=== PATIENT | female | born 1975 | race Caucasian/White ===

== ENCOUNTER → 2020-06-28 | Outpatient (CLI) | payer BC ==
[2020-06-28 13:44] LABS: BILIRUBIN,URINE NEG (NEG); CLARITY,URINE HAZY; COLOR,URINE YELLOW; GLUCOSE,URINE NEG (NEG); NITRITE,URINE NEG (NEG); UROBILINOGEN,URINE 0.2 mg/dL (0.2 mg/dL); WBC,URINE OCC /HPF (0-4)
[2020-06-28 13:45] LABS: BACTERIA,URINE 0 /HPF (0-FEW); SQUAMOUS EPITHELIAL CELL,UR OCC /LPF
== END ==
LOC: LAB 11:54
PROVIDERS: ATTEND Family Medicine
DX: R82.90 Unspecified abnormal findings in urine (principal)
CPT/HCPCS: 81001

== ENCOUNTER → 2020-10-22 | Outpatient (CLI) | payer BC ==
--- NOTE | 2020-10-22 17:16 | RAD ---
EXAM: Left finger, 3 views. HISTORY: Trauma. Pain. COMPARISON: None. FINDINGS: 3 views of the left small there are obtained. There is no acute fracture, dislocation or eason bluxation. There is no foreign body. IMPRESSION: No acute osseous finding. Electronically signed by: Fatou Romero MD (10/22/2020 5:14 PM) [id number]
== END ==
LOC: DXRAD 12:51
PROVIDERS: ATTEND Physician Assistant Medical
DX: M79.645 Pain in left finger(s) (principal)
CPT/HCPCS: 73140

== ENCOUNTER → 2021-04-01 | Outpatient (CLI) | payer OTHER ==
--- NOTE | 2021-04-01 11:15 | RAD ---
XR SHOULDER_LEFT 2+ VIEWS Clinical indications: Reason: LIFTING OBJECT, PAIN AND BURNING IN SHOULDER Findings: No acute fracture or dislocation or osteolytic process is evident. No AC joint separation is seen. IMPRESSION: No acute osseous abnormality is evident. Electronically signed by: Nathan Nelson MD (04/01/2021 11:12 AM) [id number]
== END ==
LOC: RAD 10:41
PROVIDERS: ATTEND Nurse Practitioner Family
DX: S49.92XA Unspecified injury of left shoulder and upper arm, initial encounter (principal); M25.512 Pain in left shoulder; X58.XXXA Exposure to other specified factors, initial encounter; Y93.89 Activity, other specified; Y92.89 Other specified places as the place of occurrence of the external cause; Y99.8 Other external cause status
CPT/HCPCS: 73030